=== PATIENT | female | born 1985 | race Caucasian/White ===

== ENCOUNTER 2017-05-06 21:18 | Emergency (ER) | payer OTHER ==
[2017-05-06] MEDS ORDERED: DIPHENHYDRAMINE HCL 50 MG/ML VIAL ONE (21:42)
[2017-05-06] MEDS ORDERED: FAMOTIDINE INJ/PF 20 MG/2 ML SDV IV ONE (21:42)
[2017-05-06] MEDS ORDERED: METHYLPREDNISOLONE INJ 125 MG/2 ML SDV ONE (21:42)
[2017-05-06] MEDS ORDERED: EPINEPHRINE INJ/PF 1 MG/1 ML AMPULE ONE ×2 (21:42→23:54)
[2017-05-06] MEDS ORDERED: EPINEPHRINE INJ/PF 1 MG/1 ML AMPULE IM ONE (21:42)
[2017-05-06] MEDS ORDERED: PREDNISONE 20 MG TABLET PO ONE (21:43)
--- NOTE | 2017-05-06 21:45 | ER Document Report ---
ED General - General Chief Complaint: Allergic Reaction Stated Complaint: ALLERGIC REACTION Time Seen by Provider: 05/06/17 21:42 Notes: Patient is a 31-year-old female without past medical history who presents with acute onset of hives and facial swelling as well as associated difficulty breathing approximately 30 minutes prior to arrival. States this is after she was exposed to long grass to which she has a history of allergies. She has never had this degree of reaction in the past however. Nothing improves or worsens her symptoms. She has not seen her primary doctor regarding today's concerns. No prior history of anaphylaxis. Denies any vomiting, diarrhea or abdominal pain. No syncope. TRAVEL OUTSIDE OF THE [place] IN LAST 30 DAYS: No - Related Data Allergies/Adverse Reactions: oxycodone HCl [From Percocet] Adverse Reaction (Verified 01/09/13 00:11) Vomiting Past Medical History - General Information source: Patient - Social History Smoking Status: Never Smoker Frequency of alcohol use: None Drug Abuse: None Lives with: Spouse/Significant other Family History: Reviewed & Not Pertinent Patient has suicidal ideation: No Patient has homicidal ideation: No Renal/ Medical History: Denies: Hx Peritoneal Dialysis - Immunizations Hx Diphtheria, Pertussis, Tetanus Vaccination: Yes - 2008 Review of Systems - Review of Systems Notes: Constitutional: Negative for fever. HENT: Negative for sore throat. Eyes: Negative for visual changes. Cardiovascular: Negative for chest pain. Respiratory: Negative for shortness of breath. Gastrointestinal: Negative for abdominal pain, vomiting or diarrhea. Genitourinary: Negative for dysuria. Musculoskeletal: Negative for back pain. Skin: Positive for urticaria and facial swelling Neurological: Negative for headaches, weakness or numbness. 10 point ROS negative except as marked above and in HPI. Physical Exam - Vital signs Vitals: Temp Pulse Resp BP Pulse Ox 98.4 F 85 16 138/85 H 100 05/06/17 21:28 05/06/17 21:28 05/06/17 21:28 05/06/17 21:28 05/06/17 21:28 Interpretation: Normal Notes: PHYSICAL EXAMINATION: GENERAL: Appears moderately uncomfortable but no acute distress HEAD: Atraumatic, normocephalic. EYES: Pupils equal round and reactive to light, extraocular movements intact, sclera anicteric, conjunctiva are normal. ENT: nares patent, oropharynx clear without exudates. No oropharyngeal edema. There is angioedema of the upper right lip as well as over the bilateral eyes. Moist mucous membranes. NECK: Normal range of motion, supple without lymphadenopathy LUNGS: Breath sounds clear to auscultation bilaterally and equal. No wheezes rales or rhonchi. HEART: Regular rate and rhythm without murmurs ABDOMEN: Soft, nontender, normoactive bowel sounds. No guarding, no rebound. No masses appreciated. EXTREMITIES: Normal range of motion, no pitting or edema. No cyanosis. NEUROLOGICAL: No focal neurological deficits. Moves all extremities spontaneously and on command. PSYCH: Normal mood, normal affect. SKIN: Warm, Dry, normal turgor, diffuse urticaria over the chest wall and bilateral upper extremities and upper back Course - Re-evaluation Re-evalutation: 05/06/17 21:43 Patient presents with facial swelling, lip edema and mild tongue swelling as well as diffuse urticaria after being exposed to cut grass and to which she does have a history of severe allergies. She has no stridor or wheezing at time of presentation. However given her facial and tongue edema she is at high risk for respiratory decompensation and will be monitored closely. She will be immediately placed on patient monitor, IV access will be established. I have epinephrine will be administered. Will recheck frequently. 05/06/17 2200 Patient appears much improved, facial swelling has decreased, hives are resolving. She is tachycardic after receiving epinephrine will continue to monitor 2215 Facial edema remains resolved, no stridor or wheezing. Hives have now completely resolved and patient is currently resting. 2310-patient continues to be without any symptoms. Will discharge with an epinephrine Dosepak as well as 5 days of prednisone. 05/06/17 23:54 At time of plan discharge patient again to be developed some facial edema, urticaria to the left arm. She was again placed back on the monitor and a repeat dose of 0.5 mg epinephrine has been administered. Will continue to monitor. 05/07/17 01:10 Patient symptoms have resolved after second round of epinephrine. She remains without any stridor, wheezing, hypotension, vomiting or diarrhea. Will continue to monitor 0200 Patient has remained asymptomatic. Cleared for discharge at this time. Vitals within normal limits. At this time will discharge with return precautions and follow-up recommendations. Verbal discharge instructions given a the bedside and opportunity for questions given. Medication warnings reviewed. Patient is in agreement with this plan and has verbalized understanding of return precautions and the need for primary care follow-up in the next 24-72 hours. - Vital Signs Vital signs: Temp Pulse Resp BP Pulse Ox 98.4 F 85 15 116/68 96 05/06/17 21:28 05/06/17 21:28 05/07/17 01:53 05/07/17 01:53 05/07/17 01:53 Critical Care Note - Critical Care Note Total time excluding time spent on procedures (mins): 38 Comments: Critical care time spent obtaining history from patient or surrogate, discussions with consultants, development of treatment plan with patient or surrogate, evaluation of patient's response to treatment, examination of patient , ordering and performing treatments and interventions, ordering and review of laboratory studies, re-evaluation of patient's condition, ordering and review of radiographic studies and review of old charts Discharge - Discharge Clinical Impression: Anaphylaxis Qualifiers: Encounter type: initial encounter Qualified Code(s): T78.2XXA - Anaphylactic shock, unspecified, initial encounter Condition: Good Disposition: HOME, SELF-CARE Additional Instructions: IF YOU DEVELOP DIFFICULTY BREATHING, RETURN OF HIVES, VOMITING, LIGHTHEADEDNESS , GIVE YOURSELF THE EPINEPHRINE SHOT IMMEDIATELY AND CALL 911. NEVER HESITATE TO GIVE YOURSELF THE EPINEPHRINE THIS CAN SAVE YOUR LIFE IF YOU ARE HAVE A SERIOUS ALLERGIC REACTION. Please also follow-up with your primary care doctor for consideration of allergy testing. Prescriptions: Epinephrine [Epipen 2-[place]in] 0.3 mg IM ONCE PRN #1 packet PRN Reason: Prednisone [Deltasone 20 mg Tablet] 3 tab PO DAILY 5 Days tablet
[2017-05-07 01:55] VITALS: BP 116/68
== END 2017-05-07 02:17 | disposition home or self-care (01) ==
LOC: ER 21:18
DX: T78.2XXA Anaphylactic shock, unspecified, initial encounter (principal); L50.9 Urticaria, unspecified; X58.XXXA Exposure to other specified factors, initial encounter; Z88.6 Allergy status to analgesic agent
CPT/HCPCS: 99285; 96372; J0171; J7512

== ENCOUNTER 2017-05-16 19:37 | Emergency (ER) | payer OTHER ==
[2017-05-16] MEDS ORDERED: FAMOTIDINE INJ/PF 20 MG/2 ML SDV IV ONE (20:07)
[2017-05-16] MEDS ORDERED: MAGNESIUM SULFATE/D5W 1 GM/100 ML RTUPB IV ONE (20:07)
[2017-05-16] MEDS ORDERED: METHYLPREDNISOLONE INJ 125 MG/2 ML SDV IV ONE (20:07)
[2017-05-16] MEDS ORDERED: EPINEPHRINE INJ/PF 1 MG/1 ML AMPULE IM PRN (20:08)
--- NOTE | 2017-05-16 20:10 | ER Document Report ---
ED Medical Screen (RME) - General Chief Complaint: Allergic Reaction Stated Complaint: POSSIBLE ALLERGIC REACTION Time Seen by Provider: 05/16/17 20:07 Mode of Arrival: Ambulatory Information source: Patient Notes: This is a 31-year-old female who presents to the emergency room with hives and lip swelling. Patient had a similar episode 2 weeks ago and was treated with epi IM and 5 days of steroids (60 mg a day). She had rebound symptoms when the steroids resolved. She does states she gets a reaction from Benadryl. She is followed at the [facility] and has seen an supervisor/port director for this. She does have an unspecified spondyloarthropathy TRAVEL OUTSIDE OF THE [place] IN LAST 30 DAYS: No - Related Data Allergies/Adverse Reactions: oxycodone HCl [From Percocet] Adverse Reaction (Verified 01/09/13 00:11) Vomiting Past Medical History - Social History Chew tobacco use (# tins/day): No Frequency of alcohol use: None Drug Abuse: None Renal/ Medical History: Denies: Hx Peritoneal Dialysis Surgical Hx: Negative - Immunizations Hx Diphtheria, Pertussis, Tetanus Vaccination: Yes - 2008 Physical Exam - Vital signs Vitals: Temp Pulse Resp BP Pulse Ox 98.7 F 94 17 133/82 H 99 05/16/17 19:44 05/16/17 19:44 05/16/17 19:44 05/16/17 19:44 05/16/17 19:44 Course - Vital Signs Vital signs: Temp Pulse Resp BP Pulse Ox 98.7 F 94 17 133/82 H 99 05/16/17 19:44 05/16/17 19:44 05/16/17 19:44 05/16/17 19:44 05/16/17 19:44
--- NOTE | 2017-05-16 21:35 | ER Document Report ---
ED Allergic Reaction - General Mode of Arrival: Ambulatory Information source: Patient TRAVEL OUTSIDE OF THE [place] IN LAST 30 DAYS: No - HPI Similar symptoms previously: Yes Recently seen / treated by doctor: Yes - General Chief Complaint: Allergic Reaction Stated Complaint: POSSIBLE ALLERGIC REACTION Time Seen by Provider: 05/16/17 20:07 Notes: Patient is a 31-year-old female who presents to the emergency department today with complaints of a possible allergic reaction. Patient has been seen multiple times for allergic reactions however she has been seen by an burn out tender lace and there were no common allergies found. Patient states that there is nothing she can think of that triggers these diffuse hives. Patient states she has epi- pens at home. Patient denies any difficulty swallowing or shortness of breath. (MARIA ISABEL ELLINGTON) - Related Data Allergies/Adverse Reactions: oxycodone HCl [From Percocet] Adverse Reaction (Verified 01/09/13 00:11) Vomiting Past Medical History - General Information source: Patient - Social History Smoking Status: Unknown if Ever Smoked Cigarette use (# per day): No Chew tobacco use (# tins/day): No Frequency of alcohol use: None Drug Abuse: None Lives with: Family Family History: Reviewed & Not Pertinent Patient has suicidal ideation: No Patient has homicidal ideation: No - Medical History Medical History: Negative Surgical Hx: Negative - Immunizations Hx Diphtheria, Pertussis, Tetanus Vaccination: Yes - 2008 Review of Systems - Review of Systems Constitutional: No symptoms reported EENT: denies: Difficulty swallowing Cardiovascular: No symptoms reported Respiratory: denies: Short of breath Gastrointestinal: No symptoms reported Genitourinary: No symptoms reported Female Genitourinary: No symptoms reported Musculoskeletal: No symptoms reported Skin: See HPI, Rash Hematologic/Lymphatic: No symptoms reported Neurological/Psychological: No symptoms reported -: Yes All other systems reviewed and negative Physical Exam - Vital signs Vitals: Temp Pulse Resp BP Pulse Ox 98.7 F 94 17 133/82 H 99 05/16/17 19:44 05/16/17 19:44 05/16/17 19:44 05/16/17 19:44 05/16/17 19:44 - Notes Notes: Physical Exam: General: Alert, appears well. HEENT: Normocephalic. Atraumatic. PERRL. Extraocular movements intact. Oropharynx clear. No uvular swelling, trismus, or stridor. No drooling. Neck: Supple. Non-tender. Respiratory: No respiratory distress. Clear and equal breath sounds bilaterally. Cardiovascular: Regular rate and rhythm. Abdominal: Normal Inspection. Non-tender. No distension. Normal Bowel Sounds. Back: Non-tender. No deformity or step off. Extremities: Moves all four extremities. Upper extremities: Normal inspection. Normal ROM. Lower extremities: Normal inspection. No edema. Normal ROM. Neurological: Normal cognition. AAOx4. Normal speech. Psychological: Normal affect. Normal Mood. Skin: Diffuse urticaria. Normal color. (MARIA ISABEL ELLINGTON) Course - Re-evaluation Re-evalutation: 05/16/17 22:42 Patient presents emergency department with recurrent urticaria possible allergic reaction. Patient was seen and evaluated recently this is not her first episode of urticaria and hives. She has some immune O suppressive disorder they have not identified yet. They have talked to her about thinking that she probably likely has chronic idiopathic urticaria. They thought that the most recent reaction was due to grass they tested her at an burn out [facility] and she does not have any allergies that are obvious. She has an EpiPen at home and is set to go back to a corporate legal intern in follow-up. On exam she has hives that wax and wane they are significantly diminished from when she originally came in there is no tongue lip or uvular swelling difficulty breathing swallowing trismus stridor or drooling or GI upset she given medications from the provider in triage and is feeling well from those has a reaction to Benadryl so I have given her some Atarax. She has a EpiPen that she can carry with her at all times states she is going to [place] for a wedding this but is going to keep the EpiPen with her also has an outpatient follow- up appointment with primary care and corporate legal intern. And discussed reasons for ED return sooner (EVONNE CHU) - Vital Signs Vital signs: Temp Pulse Resp BP Pulse Ox 98.1 F 93 18 121/72 99 05/16/17 22:47 05/16/17 22:47 05/16/17 22:47 05/16/17 22:47 05/16/17 22:47 Discharge - Discharge Clinical Impression: Recurrent urticaria Condition: Stable Disposition: HOME, SELF-CARE Additional Instructions: You have been seen for recurrent urticaria and hives. I suspect that this is chronic idiopathic urticaria. He has been tested as an outpatient and they have without anything thus far. You do have an EpiPen at home and received medications here. I am going to try Atarax as you say that manager multicultural makes it worse. Follow-up with your primary care physician in 2-3 days and discussed reasons for ED return sooner Prescriptions: Hydroxyzine HCl [Atarax 10 mg Tablet] 10 mg PO TID #12 tablet Scribe Attestation: 05/16/17 22:40 I personally performed the services described in the documentation reviewed the documentation recorded by my scribe in my presence and it accurately and completely records my words and actions (EVONNE CHU) Leesaibe Documentation - Scribe Written by Trista:: Trista Kc, 05/17/2017 0124 acting as scribe for :: Yordan
[2017-05-16 22:48] VITALS: BP 121/72
== END 2017-05-16 22:47 | disposition home or self-care (01) ==
LOC: ER 19:37
DX: L50.8 Other urticaria (principal); T78.40XA Allergy, unspecified, initial encounter; X58.XXXA Exposure to other specified factors, initial encounter
CPT/HCPCS: 99283; J0171; J2930; J3475; S0028

== ENCOUNTER 2017-05-31 18:42 | Emergency (ER) | payer OTHER ==
[2017-05-31] MEDS ORDERED: METHYLPREDNISOLONE INJ 125 MG/2 ML SDV IV ONE ×2 (18:43→22:12)
[2017-05-31] MEDS ORDERED: DIPHENHYDRAMINE HCL 50 MG/ML VIAL IV ONE (18:43)
[2017-05-31] MEDS ORDERED: EPINEPHRINE INJ/PF 1 MG/1 ML AMPULE SUBCUT ONE (18:43)
[2017-05-31] MEDS ORDERED: NORMAL SALINE 1000 ML 1,000 ML IV PRN (18:43)
--- NOTE | 2017-05-31 18:54 | ER Document Report ---
ED Medical Screen (RME) - General Chief Complaint: Allergic Reaction Stated Complaint: POSSIBLE ALLERGIC REACTION Time Seen by Provider: 05/31/17 18:43 Mode of Arrival: Ambulatory Information source: Patient TRAVEL OUTSIDE OF THE [place] IN LAST 30 DAYS: No - HPI Patient complains to provider of: Acute allergic reaction Onset: Just prior to arrival Notes: 05/31/17 18:54 Patient is a 31-year-old female presenting to the emergency room for the third time in approximately 1 month complaining of acute allergic reaction with diffuse hives and sensation of hives in her throat - Related Data Allergies/Adverse Reactions: oxycodone HCl [From Percocet] Adverse Reaction (Verified 05/31/17 18:46) Vomiting Past Medical History Renal/ Medical History: Denies: Hx Peritoneal Dialysis - Immunizations Hx Diphtheria, Pertussis, Tetanus Vaccination: Yes - 2008 Physical Exam - Vital signs Vitals: Temp Pulse Resp BP Pulse Ox 98.1 F 139 H 24 H 120/73 100 05/31/17 18:44 05/31/17 18:44 05/31/17 18:44 05/31/17 18:44 05/31/17 18:44 Course - Vital Signs Vital signs: Temp Pulse Resp BP Pulse Ox 98.1 F 139 H 24 H 120/73 100 05/31/17 18:44 05/31/17 18:44 05/31/17 18:44 05/31/17 18:44 05/31/17 18:44
--- NOTE | 2017-05-31 18:58 | ER Document Report ---
ED General - General Chief Complaint: Allergic Reaction Stated Complaint: POSSIBLE ALLERGIC REACTION Time Seen by Provider: 05/31/17 18:43 Mode of Arrival: Ambulatory Notes: Patient is a 31-year-old female with a past medical history of anaphylaxis, idiopathic urticaria, ankylosing spondylitis who presents with 45 minutes of diffuse urticaria, facial swelling and difficulty breathing. This started when she was eating at the [employer]. She states the food she had today she has tolerated in the past without difficulty. Patient has been seen in the emergency department on 2 separate occasions for similar presentation both times with different exposures. She is scheduled for allergy testing next week. She has not tried anything for her symptoms. She has not noted that anything has made her symptoms worse since they started. She denies any difficulty swallowing but does note some difficulty breathing. Symptoms have worsened since onset. TRAVEL OUTSIDE OF THE [place] IN LAST 30 DAYS: No - Related Data Allergies/Adverse Reactions: oxycodone HCl [From Percocet] Adverse Reaction (Verified 05/31/17 18:46) Vomiting Past Medical History - General Information source: Patient - Social History Smoking Status: Never Smoker Frequency of alcohol use: None Drug Abuse: None Lives with: Spouse/Significant other Family History: Reviewed & Not Pertinent Renal/ Medical History: Denies: Hx Peritoneal Dialysis - Immunizations Hx Diphtheria, Pertussis, Tetanus Vaccination: Yes - 2008 Review of Systems - Review of Systems Notes: Constitutional: Negative for fever. HENT: Negative for sore throat. Eyes: Negative for visual changes. Cardiovascular: Negative for chest pain. Respiratory: Positive for shortness of breath. Gastrointestinal: Negative for abdominal pain, vomiting or diarrhea. Genitourinary: Negative for dysuria. Musculoskeletal: Negative for back pain. Skin: Positive for urticaria Neurological: Negative for headaches, weakness or numbness. 10 point ROS negative except as marked above and in HPI. Physical Exam - Vital signs Vitals: Temp Pulse Resp BP Pulse Ox 98.1 F 139 H 24 H 120/73 100 05/31/17 18:44 05/31/17 18:44 05/31/17 18:44 05/31/17 18:44 05/31/17 18:44 Interpretation: Tachycardic, Tachypneic Notes: PHYSICAL EXAMINATION: GENERAL: Appears uncomfortable, in moderate distress. HEAD: Atraumatic, normocephalic. EYES: Pupils equal round and reactive to light, extraocular movements intact, sclera anicteric, conjunctiva are normal. ENT: nares patent, mucosal hives, mild pharyngeal edema. There is diffuse facial edema as well as edema of the lips. NECK: Normal range of motion, supple without lymphadenopathy LUNGS: Breath sounds clear to auscultation bilaterally and equal. No wheezes rales or rhonchi. HEART: Regular tachycardia without murmurs ABDOMEN: Soft, nontender, normoactive bowel sounds. No guarding, no rebound. No masses appreciated. EXTREMITIES: Normal range of motion, no pitting or edema. No cyanosis. NEUROLOGICAL: No focal neurological deficits. Moves all extremities spontaneously and on command. PSYCH: Normal mood, normal affect. SKIN: Warm, Dry, normal turgor, diffuse urticaria over the bilateral upper extremities, chest, neck and back Course - Re-evaluation Re-evalutation: 05/31/17 18:57 Patient presents with acute anaphylaxis, diffuse urticaria, urticaria in the mouth, mild facial swelling but no stridor or wheezing. She is tachycardic but not hypotensive. No GI distress. I medially saw this patient upon arrival. 0.5 mg of IM epinephrine was administered. She does carry a allergy to Benadryl and is requesting that we do not administer steroids that she has formal allergy testing scheduled for early next week. I am fine with this his epinephrine is only has evidence in the setting. I have seen this patient in the past and she did rebound with anaphylaxis approximately 2 hours after my initial observation. So I will continue to monitor closely. The exact trigger today remains unclear although she was eating at a restaurant. Patient may also have idiopathic autoimmune urticaria as an alternative diagnosis. She is critical at this time given her oropharyngeal involvement, diffuse urticaria and tachycardia. She will require frequent reassessments. 05/31/17 1910 Patient's urticaria is resolving, facial edema has resolved, oral hives have resolved. Will continue to monitor closely. 05/31/17 20:07 Patient does now have some swelling underneath her right eye and over the right cheek although her urticaria over the chest has resolved. Lip swelling remains resolved. However given her starting with new hives will give a second dose. 05/31/17 22:11 Patient has developed repeat urticaria but remains without any facial or airway symptoms. Will give Solu-Medrol at this point, famotidine and magnesium. 06/01/17 00:02 Patient's urticaria is now mostly resolved, she has been observed now for 5 hours has not had any recurrence of airway symptoms. We did discuss hospitalization for further monitoring versus close monitoring at home and patient is agreed with close monitoring at home. I do have a high suspicion that this is autoimmune in origin and have encouraged the patient to follow-up with rheumatology. At this time will discharge with return precautions and follow-up recommendations. Verbal discharge instructions given a the bedside and opportunity for questions given. Medication warnings reviewed. Patient is in agreement with this plan and has verbalized understanding of return precautions and the need for primary care follow-up in the next 24-72 hours. - Vital Signs Vital signs: Temp Pulse Resp BP Pulse Ox 98.1 F 139 H 24 H 110/71 92 05/31/17 18:44 05/31/17 18:44 06/01/17 00:10 06/01/17 00:10 06/01/17 00:10 Critical Care Note - Critical Care Note Total time excluding time spent on procedures (mins): 50 Comments: Critical care time spent obtaining history from patient or surrogate, discussions with consultants, development of treatment plan with patient or surrogate, evaluation of patient's response to treatment, examination of patient , ordering and performing treatments and interventions, ordering and review of laboratory studies, re-evaluation of patient's condition, ordering and review of radiographic studies and review of old charts Discharge - Discharge Clinical Impression: Diffuse urticaria Anaphylaxis Qualifiers: Encounter type: initial encounter Qualified Code(s): T78.2XXA - Anaphylactic shock, unspecified, initial encounter Condition: Good Disposition: HOME, SELF-CARE Additional Instructions: IF YOU DEVELOP DIFFICULTY BREATHING, RETURN OF HIVES, VOMITING, LIGHTHEADEDNESS , GIVE YOURSELF THE EPINEPHRINE SHOT IMMEDIATELY AND CALL 911. NEVER HESITATE TO GIVE YOURSELF THE EPINEPHRINE THIS CAN SAVE YOUR LIFE IF YOU ARE HAVE A SERIOUS ALLERGIC REACTION. In addition to allergy testing, I have a high level of suspicion that your urticaria are actually due to autoimmune condition. I would strongly encourage her to follow-up with rheumatology at your earliest ability.
[2017-05-31] MEDS ORDERED: EPINEPHRINE INJ/PF 1 MG/1 ML AMPULE IM ONE (20:08)
[2017-05-31] MEDS ORDERED: EPINEPHRINE INJ/PF 1 MG/1 ML AMPULE ONE (20:12)
[2017-05-31] MEDS ORDERED: FAMOTIDINE INJ/PF 20 MG/2 ML SDV IV ONE (22:12)
[2017-05-31] MEDS: MAGNESIUM SULFATE/D5W 1 GM/100 ML RTUPB IV SCH ×2 (22:15→22:35)
[2017-06-01 00:19] VITALS: BP 110/71
== END 2017-06-01 00:30 | disposition home or self-care (01) ==
LOC: ER 18:42
DX: T78.2XXA Anaphylactic shock, unspecified, initial encounter (principal); L50.9 Urticaria, unspecified
CPT/HCPCS: 99284; 96372; 96361; 96375; 96365; J0171; J2930; J3475; J7030; S0028